=== PATIENT | female | born 1990 | race Caucasian/White ===

== ENCOUNTER 2017-09-24 04:54 | Outpatient (CLI) | payer OTHER | END 2017-09-24 04:55 | disposition critical access hospital (66) | LOC: EMS 04:54 | PROVIDERS: ATTEND Surgery | DX: M54.9 Dorsalgia, unspecified (principal) | CPT/HCPCS: A0425; A0427 ==

== ENCOUNTER 2017-09-24 05:16 | Emergency (ER) | payer OTHER ==
--- NOTE | 2017-09-24 05:34 | ED Physician Documentation ---
PD HPI BACK PAIN - Stated complaint Stated Complaint: BACK PAIN - Chief complaint Chief Complaint: Back Pain - History obtained from History obtained from: Patient - History of Present Illness Timing - onset: How many minutes ago (45 minutes [employer]) Timing - details: Abrupt onset Pain level max: 10 Pain level now: 8 Location: Mid, Right Quality: Pain Associated symptoms: No: Fever, Weakness, Numbness, Incontinent of urine, Unable to urinate, Hematuria, Incontinent of stool Improves with: Nothing Worsened by: Other (no exacerbating factors) Similar symptoms before: Has not had sx before Recently seen: Other ( one month ago, and seen in outpatient setting 2 weeks ago for mastitis (rx keflex)) Review of Systems Constitutional: denies: Fever Cardiac: reports: Reviewed and negative Respiratory: reports: Reviewed and negative GI: reports: Reviewed and negative : denies: Dysuria, Frequency Musculoskeletal: reports: Back pain PD PAST MEDICAL HISTORY - Past Medical History Past Medical History: No - Past Surgical History 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 - Present Medications Home Medications: Ambulatory Orders Medication Instructions Recorded Confirmed Pnv95/Ferrous Fumarate/FA 1 cap PO DAILY 09/24/17 09/24/17 [ Formula Tablet] buPROPion [Wellbutrin Sr] 150 mg PO BID 09/24/17 09/24/17 - Allergies Allergies/Adverse Reactions: Allergies Allergy/AdvReac Type Severity Reaction Status Date / Time No Known Drug Allergies Allergy Verified 09/24/17 05:22 - Social History Does the pt smoke?: No Smoking Status: Never smoker Does the pt drink ETOH?: Yes Does the pt have substance abuse?: No - Immunizations Immunizations are current?: Yes PD ED PE NORMAL - Vitals Vital signs reviewed: Yes - General General: Alert and oriented X 3 (obvious painful distress), Well developed/ nourished - HEENT HEENT: Moist mucous membranes - Cardiac Cardiac: RRR, No murmur - Respiratory Respiratory: No respiratory distress, Clear bilaterally - Abdomen Abdomen: Soft, Non tender, Non distended - Back Back: No CVA TTP - Derm Derm: Normal color, Warm and dry, No rash Results - Vitals Vitals: Vital Signs - 24 hr 09/24/17 09/24/17 09/24/17 05:20 06:29 08:20 Temperature 36.4 C L Heart Rate 78 96 73 Respiratory 18 14 16 Rate Blood Pressure 124/75 118/86 H 119/74 O2 Saturation 96 93 97 09/24/17 08:49 Temperature Heart Rate 67 Respiratory 16 Rate Blood Pressure 108/70 O2 Saturation 97 Oxygen O2 Source Room air - Labs Labs: Laboratory Tests 09/24/17 09/24/17 09/24/17 05:25 05:58 05:58 WBC 10.4 RBC 4.42 Hgb 13.9 Hct 42.0 MCV 94.9 MCH 31.4 H MCHC 33.1 RDW 13.2 Plt Count 201 MPV 9.1 Neut # Not Reportable Lymph # Not Reportable [place] # Not Reportable Eos # Not Reportable Baso # Not Reportable Absolute Nucleated RBC Not Reportable Total Counted 100 Band Neuts % (Manual) 4 Abnorm Lymph % (Manual) 0 Nucleated RBC % Not Reportable Neutrophils # (Manual) 5.1 Lymphocytes # (Manual) 2.0 Monocytes # (Manual) 1.8 H Eosinophils # (Manual) 1.6 H Basophils # (Manual) 0.0 Differential Comment MANUAL DIFFERENTIAL Platelet Estimate NORMAL (130-450,000) RBC Morph Micro Appear NORMAL APPEARANCE D-Dimer 253.5 Sodium Potassium Chloride Carbon Dioxide Anion Gap BUN Creatinine Estimated GFR (MDRD) Glucose Calcium Total Bilirubin AST ALT Alkaline Phosphatase Total Protein Albumin Globulin Albumin/Globulin Ratio Lipase Urine Color YELLOW Urine Clarity CLEAR Urine pH 6.0 Ur Specific [place] 1.015 Urine Protein NEGATIVE Urine Glucose (UA) NEGATIVE Urine Ketones NEGATIVE Urine Occult Blood NEGATIVE Urine Nitrite NEGATIVE Urine Bilirubin NEGATIVE Urine Urobilinogen 0.2 (NORMAL) Ur Leukocyte Esterase TRACE H Urine RBC 0-5 Urine WBC 0-3 Ur Squamous Epith Cells MOD Squamous H Urine Bacteria Rare Ur Microscopic Review INDICATED Urine Culture Comments NOT INDICATED 09/24/17 05:58 WBC RBC Hgb Hct MCV MCH MCHC RDW Plt Count MPV Neut # Lymph # [place] # Eos # Baso # Absolute Nucleated RBC Total Counted Band Neuts % (Manual) Abnorm Lymph % (Manual) Nucleated RBC % Neutrophils # (Manual) Lymphocytes # (Manual) Monocytes # (Manual) Eosinophils # (Manual) Basophils # (Manual) Differential Comment Platelet Estimate RBC Morph Micro Appear D-Dimer Sodium 138 Potassium 4.5 Chloride 104 Carbon Dioxide 25 Anion Gap 9.0 BUN 14 Creatinine 0.8 Estimated GFR (MDRD) 85 L Glucose 98 Calcium 9.3 Total Bilirubin 0.7 AST 50 H ALT 45 Alkaline Phosphatase 82 Total Protein 6.9 Albumin 3.8 Globulin 3.1 Albumin/Globulin Ratio 1.2 Lipase 22 Urine Color Urine Clarity Urine pH Ur Specific [place] Urine Protein Urine Glucose (UA) Urine Ketones Urine Occult Blood Urine Nitrite Urine Bilirubin Urine Urobilinogen Ur Leukocyte Esterase Urine RBC Urine WBC Ur Squamous Epith Cells Urine Bacteria Ur Microscopic Review Urine Culture Comments - Rads (name of study) RUQ US Radiology: Prelim report reviewed, See rad report PD MEDICAL DECISION MAKING - ED course Complexity details: reviewed results, re-evaluated patient, considered differential, d/w patient ED course: reassuring blood tests and normal cxr. despite lack of anterior abd. symptoms and findings, RUQ reveals large gallstone. cholelithiasis without evidence of cholecystitis, and patient appeared comfortable on reevaluation after dilaudid. she prefers discharge home, and has appointment already scheduled for 1PM today with her doctor at [facility]. given 0.5 mg dilaudid and toradol prior to discharge for mild increase in pain Departure - Departure Disposition: 01 Home, Self Care Clinical Impression: Cholelithiasis Condition: Good Instructions: ED Gallstone W Biliary Colic Follow-Up: [facility] Aryan Alcazar [Provider Group] (Today as scheduled) Discharge Date/Time: 09/24/17 09:03
[2017-09-24 05:43] LABS: BILIRUBIN,URINE NEGATIVE (NEGATIVE)
[2017-09-24 05:47] LABS: UA w/ MICROSCOPIC CHARGE YES
[2017-09-24] MEDS ORDERED: HYDROmorphone 1 MG/ML SYRINGE IVP STA ×2 (05:47→08:11)
[2017-09-24 05:51] LABS: UR CULTURE IF IND NOT INDICATED; WBC,URINE 0-3 /HPF (0-5)
[2017-09-24 06:05] LABS: BASOPHILS % (AUTO) 0.7 %; EOSINOPHILS % (AUTO) 12.4 %; HGB - HEMOGLOBIN 13.9 g/dL (12.0-16.0); LYMPHOCYTES % (AUTO) 21.7 %; MEAN CORPUSCULAR HEMOGLOBIN 31.4 pg (27.0-31.0); MEAN CORPUSCULAR HGB CONC 33.1 g/dL (32.0-36.0); MEAN CORPUSCULAR VOLUME 94.9 fL (81.0-99.0); MEAN PLATELET VOLUME 9.1 fL (7.9-10.8); MONOCYTES % (AUTO) 8.6 %; NEUTROPHILS % (AUTO) 56.6 %; RED BLOOD COUNT 4.42 10^6/uL (4.20-5.40); RED CELL DISTRIBUTION WIDTH 13.2 % (12.0-15.0); UNCORRECTED WHITE BLOOD COUNT 10.4 x10^3/uL; WHITE BLOOD COUNT 10.4 x10^3/uL (4.8-10.8)
[2017-09-24 06:16] LABS: ALBUMIN/GLOBULIN RATIO 1.2 (1.0-2.2); BILIRUBIN,TOTAL 0.7 mg/dL (0.2-1.0); CALCIUM 9.3 mg/dL (8.5-10.3); CREATININE 0.8 mg/dL (0.4-1.0); POTASSIUM 4.5 mmol/L (3.5-5.0); TOTAL PROTEIN 6.9 g/dL (6.7-8.2)
[2017-09-24 06:29] LABS: BAND NEUTROPHILS % (MANUAL) 4 %; EOSINOPHILS % (MANUAL) 15 %; LYMPHOCYTES % (MANUAL) 19 %; NEUTROPHILS % (MANUAL) 45 %; NP AUTO DIFFERENTIAL? YES; NP MAN DIFFERENTIAL? NO; PLATELET ESTIMATE, MANUAL NORMAL (130-450,000) (NORMAL); TOTAL CELLS COUNTED 100
--- NOTE | 2017-09-24 06:33 | XRAY Preliminary Report ---
Exam: XR CHEST 2 VIEW PA/LAT IMPRESSION: Normal 2-view chest radiography. [facility] SITE ID: [id number]
--- NOTE | 2017-09-24 06:36 | XRAY Report ---
EXAM: CHEST RADIOGRAPHY EXAM DATE: 09/24/2017 06:16 AM. CLINICAL HISTORY: Right flank/back pain. COMPARISON: None. TECHNIQUE: 2 views. FINDINGS: Lungs/Pleura: No focal opacities evident. No pleural effusion. No pneumothorax. Normal volumes. Mediastinum: Heart and mediastinal contours are unremarkable. Other: None. IMPRESSION: Normal 2-view chest radiography. [facility] Referring Provider Line: [phone] SITE ID: [id number]
--- NOTE | 2017-09-24 07:52 | Ultrasound Preliminary Report ---
Exam: US ABDOMEN LIMITED IMPRESSION: Cholelithiasis, 3.3 cm stone lodged in the neck of the gallbladder. Particulate sludge in the gallbladder lumen. No sonographic signs of cholecystitis. Mildly dilated common bile duct, 7.1 mm. Hepatomegaly and diffuse fatty infiltration of the liver. Pancreas not visualized. [facility] SITE ID: [id number]
--- NOTE | 2017-09-24 07:54 | Ultrasound Report ---
EXAM: ABDOMEN ULTRASOUND LIMITED, RIGHT UPPER ABDOMEN EXAM DATE: 09/24/2017. CLINICAL HISTORY: Right upper abdominal pain. COMPARISON: None. TECHNIQUE: Real-time and Doppler ultrasound examination, regarding a multiple static images. FINDINGS: Liver: Enlarged, right lobe 19.4 cm. Increased echogenicity of the parenchyma. No focal abnormality. Main portal vein flow: Hepatopetal. Gallbladder: Stone lodged in the neck of the gallbladder, 3.3 cm maximal diameter. Particulate sludge in the lumen. No wall thickening or adjacent fluid collections. Negative King's sign. Biliary System: CBD measures 7.1 mm. No intraluminal echodensities visible. Pancreas: Not visualized. Right kidney: 10.2 cm length. No hydronephrosis or other abnormality. Fluid Collections: None. IMPRESSION: Cholelithiasis, 3.3 cm stone lodged in the neck of the gallbladder. Particulate sludge in the gallbladder lumen. No sonographic signs of cholecystitis. Mildly dilated common bile duct, 7.1 mm. Hepatomegaly and diffuse fatty infiltration of the liver. Pancreas not visualized. [facility] Referring Provider Line: [phone] SITE ID: [id number]
[2017-09-24] MEDS ORDERED: KETOROLAC 60 MG/2 ML VIAL IVP STA (08:11)
[2017-09-24 08:49] VITALS: BP 108/70
== END 2017-09-24 09:03 | disposition home or self-care (01) ==
LOC: ED 05:16
DX: K80.20 Calculus of gallbladder without cholecystitis without obstruction (principal); K76.0 Fatty (change of) liver, not elsewhere classified
CPT/HCPCS: 36415; 71020; 76705; 80053; 81001; 83690; 85025; 85379; 96374; 96375; 96376; 99284; J1170; 81003; 87086